=== PATIENT | male | born 2005 | race Caucasian/White ===

== ENCOUNTER 2025-02-07 20:29 | Emergency (ER) | payer OTHER ==
[2025-02-07 20:39] VITALS: BP 128/58; PULSE 79; RESP 18; TEMP 98.3; BMI 26.9
[2025-02-07 21:58] LABS: PH,URINE 6.5 (5.0-8.0); URINE APPEARANCE CLEAR; URINE BILIRUBIN NEGATIVE (NEGATIVE); URINE COLOR YELLOW; URINE GLUCOSE (UA) NEGATIVE (NEGATIVE); URINE KETONE NEGATIVE (NEGATIVE); URINE LEUK ESTERASE NEGATIVE (NEGATIVE); URINE NITRITE NEGATIVE (NEGATIVE); URINE PROTEIN NEGATIVE (NEGATIVE); URINE UROBILINOGEN 0.2 mg/dL (0.2-1.0)
== END 2025-02-07 22:59 | disposition home or self-care (01) ==
LOC: JERFT 20:29
DX: R20.2 Paresthesia of skin (principal)
CPT/HCPCS: 36415; 81003; 87086; 87491; 87591; 87661; 93005; 93010; 99284-25

== ENCOUNTER 2025-03-10 21:12 | Emergency (ER) | payer OTHER ==
[2025-03-10 21:29] VITALS: BP 134/77; PULSE 86; RESP 20; TEMP 98.7; BMI 27.2
[2025-03-10] MEDS ORDERED: RABIES VACCINE (PCEC)/PF 2.5 UNIT/VIAL IM ONE (22:36)
[2025-03-10] MEDS ORDERED: DIPHTH,PERTUSS(ACELL),TET 0.5 ML DISP.SYRIN IM ONE (22:40)
[2025-03-10] MEDS: RABIES VACCINE (PCEC)/PF 2.5 UNIT/VIAL IM ONE (23:30)
[2025-03-10] MEDS: DIPHTH,PERTUSS(ACELL),TET 0.5 ML DISP.SYRIN IM ONE (23:33)
[2025-03-10] MEDS: RABIES IMMUNE GLOBULIN 300 UNITS/1 ML VIAL IM ONE (23:49)
== END 2025-03-11 00:26 | disposition home or self-care (01) ==
LOC: JERFT 21:12
PROC: 3E0234Z Introduction of Serum, Toxoid and Vaccine into Muscle, Percutaneous Approach (ICD-10-PCS; principal; 2025-03-10)
PROC: 3E0234Z Introduction of Serum, Toxoid and Vaccine into Muscle, Percutaneous Approach (ICD-10-PCS; 2025-03-10)
DX: S60.512A Abrasion of left hand, initial encounter (principal); L29.9 Pruritus, unspecified; Z23 Encounter for immunization; W55.59XA Other contact with raccoon, initial encounter
CPT/HCPCS: 90375; 90675; 90715; 99284-25

== ENCOUNTER 2025-03-17 17:35 | Emergency (ER) | payer OTHER ==
[2025-03-17 17:59] VITALS: BP 119/74; PULSE 84; RESP 18; TEMP 98.5; BMI 33.5
[2025-03-17] MEDS ORDERED: RABIES VACCINE (PCEC)/PF 2.5 UNIT/VIAL IM ONE (18:59)
[2025-03-17] MEDS: RABIES VACCINE (PCEC)/PF 2.5 UNIT/VIAL IM ONE (19:13)
== END 2025-03-17 19:46 | disposition home or self-care (01) ==
LOC: JERFT 17:35
PROC: 3E0234Z Introduction of Serum, Toxoid and Vaccine into Muscle, Percutaneous Approach (ICD-10-PCS; principal; 2025-03-17)
DX: Z29.14 Encounter for prophylactic rabies immune globulin (principal)
CPT/HCPCS: 90675; 99283-25

== ENCOUNTER 2025-03-24 16:21 | Emergency (ER) | payer OTHER ==
[2025-03-24 16:39] VITALS: BP 123/61; PULSE 72; RESP 18; TEMP 98.3; BMI 27.2
[2025-03-24] MEDS ORDERED: RABIES VACCINE (PCEC)/PF 2.5 UNIT/VIAL IM ONE (17:31)
[2025-03-24] MEDS: RABIES VACCINE (PCEC)/PF 2.5 UNIT/VIAL IM ONE (17:35)
== END 2025-03-24 18:16 | disposition home or self-care (01) ==
LOC: JERFT 16:21
PROC: 3E0234Z Introduction of Serum, Toxoid and Vaccine into Muscle, Percutaneous Approach (ICD-10-PCS; principal; 2025-03-24)
DX: Z29.14 Encounter for prophylactic rabies immune globulin (principal)
CPT/HCPCS: 90675; 99281-25